=== PATIENT | male | born 1940 | race Caucasian/White ===

== ENCOUNTER 2016-08-19 13:52 | Inpatient (IN) | payer MEDICARE ==
[~2016-08-19] VITALS: Ht 180.3 cm; Wt 80.4 kg
[2016-08-19] VITALS (12 sets, daily range): BP systolic 80–143; BP diastolic 48–72; PULSE 71–89; RESP 16–23; O2SAT 90–98
[~2016-08-19 13:52] MED LIST: ALBU8.5H4 IH; ASPI-973 PO; FLUD0.1T PO; FLUT16SP NS; LORA10CA PO; MULT-1018 PO; OMEP20CA11 PO; PANT40TA3 PO; POLY17PO6 PO; SIMV40TA5 PO
--- NOTE | 2016-08-19 14:19 | ED.REPORT ---
HPI-General Illness Date of Service Aug 19, 2016 ED Provider: The patient is a 76 year old male with history of coronary artery disease, mitral valve insufficiency s/p mitral valve repair, orthostatic hypotension s/p vagotomy, hypertension, hypercholesteremia, GERD, BPH, bladder retention, who presents to the emergency department complaining of generalized weakness that began earlier today. He was unable to get out of bed this morning due to the weakness. He has also noticed low blood pressures, fatigue, nausea (started last night after eating dinner), and decreased urination. The patient states he has been drinking a lot of fluids but has not been urinating. He has required a catheter in the past for urinary retention. His blood pressure in the morning can be as low as 75/45 and midday it runs around 135/75. He denies fever, chills , chest pain, shortness of breath, cough, abdominal pain, diarrhea, vomiting, headache, numbness or focal weakness. Nursing Notes Stated Complaint: WEAK,CANT STAND, LOW BP Chief Complaint: General Complaint Nursing Notes Reviewed: Yes Allergies: Coded Allergies: No Known Allergies (Unverified , 08/19/16) Scheduled Aspirin (Aspirin) 81 Mg Tablet 81 MG PO DAILY Fludrocortisone Acetate (Fludrocortisone Acetate) 0.1 Mg Tablet 2 TABLET PO DAILY Fluticasone Propionate (Fluticasone Propionate Nasal) 16 Gm [place].susp 1 SPRAY NS DAILY Loratadine (Claritin) 10 Mg Capsule 10 MG PO BID Multivitamin (Multi Vitamin Daily) 1 Each Tablet 1 EACH PO DAILY Omeprazole (Omeprazole) 20 Mg Capsule.dr 20 MG PO BID Pantoprazole (Pantoprazole ) 40 Mg Tablet.dr 40 MG PO BID Prednisone (PredniSONE) 10 Mg Tablet 10 MG PO DAILY Simvastatin (Simvastatin) 40 Mg Tablet 40 MG PO HS Scheduled PRN Albuterol HFA (Albuterol HFA) 8.5 Gm Hfa.aer.ad 1 PUFF IH Q4-6H PRN PRN For Shortness of Breath Polyethylene Glycol 3350 (Miralax) 17 Gm Powd.pack 17 GM PO DAILY PRN PRN prn General Time Seen by MD: 14:18 Chief Complaint Weakness Hx Obtained From: Patient, Other family... Arrived By: Walk-in Sudden in Onset?: No Onset Occurred: 5 - 8 hours ago Symptom Duration: Since onset Severity: Current: No pain currently Severity: Maximum: No pain Recent Healthcare: No recent doctor visit, No recent hospitalization Similar Sx Previous: Yes Past Medical History Past Medical History Obstructive sleep apnea GERD Hypersomnia Dysphagia Non-rheumatic mitral valve stenosis Orthostatic hypotension Testicular hypofunction BPH Bladder retention Coronary artery disease Deep venous thrombophlebitis Hypertension Hypercholesteremia Mitral valve insufficiency Past Surgical History Mitral valve repair Vagotomy Hiatal hernia repair Shoulder surgery Back surgery x2 Family History Noncontributory Smoking History Former Smoker Social History Other Social History: Good social support, Local resident Ambulatory Status Independent Review of Systems Full Review of Systems Constitutional: Reports: Weakness - generalized, Denies: Chills, Fever Respiratory: Denies: Non-productive cough, Shortness of breath Cardiovascular: Denies: Chest pain GI: Reports: Nausea, Denies: Abdominal pain, Diarrhea, Vomiting Male: Reports Urination decreased Neurologic: Denies: Focal weakness, Headache, Numbness Complete sys rev & neg: except as marked. Physical Exam Vital Signs Vital Signs Date Time Temp Pulse Resp B/P Pulse Ox O2 Delivery O2 Flow Rate FiO2 08/19/16 17:08 89 84/48 08/19/16 17:06 73 135/61 08/19/16 16:57 74 23 127/63 98 08/19/16 16:00 74 21 133/53 98 Room Air 08/19/16 15:30 80 22 143/72 96 08/19/16 15:00 76 22 127/61 93 Room Air 08/19/16 14:45 80 22 124/61 95 08/19/16 14:15 83 22 116/60 91 Room Air 08/19/16 14:06 36.7 82 16 80/51 91 Room Air Initial VS: Reviewed Head / Eyes: Atraumatic, Normocephalic, PERRL ENT: Mucous membranes moist, Conjunctiva normal, No scleral icterus Neck: Supple, Non-tender, Full range of motion Cardiovascular: Regular rate & rhythm, Heart sounds normal, Intact distal pulses Abdomen / GI: Soft, Non-tender, No guarding, No rebound, No distention Lymphatic: No lymphadenopathy Extremities: Vascular intact, Neuro intact, No swelling, No tenderness Skin: Warm, Dry, No cyanosis Psychiatric: Mood/affect normal, Behavior normal, Normal thought content General/Constitutional: Awake, Alert Appearance / Presentation: Positive: Pale Respiratory / Chest: Breath sounds NL, Breath sounds = bilat, No respiratory distress, No rales, No rhonchi, No wheezing hypoxic Neurologic: Oriented X3, Speech NL, No motor deficits, No sensory deficits, CN II - XII intact Interpretation & Diagnostics Lab Results Interpretation Result Diagram: 08/19/16 1445 08/19/16 1445 Test 08/19/16 14:45 08/19/16 15:30 08/19/16 16:13 White Blood Count 13.5th/mm3 (3.8-10.1) Red Blood Count 3.53mil/mm3 (4.40-5.80) Hemoglobin 12.0g/dL (13.8-17.2) Hematocrit 35.5% (41.0-50.0) Mean Corpuscular Volume 100.6fL (81-100) Mean Corpuscular Hemoglobin 34.0pg (27.0-35.0) Mean Corpuscular Hemoglobin Concent 33.8% (32.0-37.0) Red Cell Distribution Width 13.0% (12.3-15.4) Platelet Count 152bil/L (150-400) Neutrophils (%) (Auto) 79.4% (40-74) Lymphocytes (%) (Auto) 9.5% (14-46) Monocytes (%) (Auto) 10.6% (4-12) Eosinophils (%) (Auto) 0% (0-5) Basophils (%) (Auto) 0.1% (0-3) Sodium Level 140mEq/L (134-144) Potassium Level 3.3mEq/L (3.5-5.2) Chloride Level 96mEq/L (97-108) Carbon Dioxide Level 28mmol/L (18-29) Blood Urea Nitrogen 18mg/dL (8-27) Creatinine 1.11mg/dL (0.76-1.27) Estimat Glomerular Filtration Rate 68mL/min (>59) Glucose Level 124mg/dL (60-99) Lactic Acid Level 1.5mmol/L (0.4-2.0) Calcium Level 8.3mg/dL (8.5-10.1) Magnesium Level 1.8mg/dL (1.6-2.6) Total Bilirubin 1.0mg/dL (0.0-1.2) Aspartate Amino Transf (AST/SGOT) 16U/L (0-50) Alanine Aminotransferase (ALT/SGPT) 8U/L (0-44) Alkaline Phosphatase 72U/L (25-160) Troponin T 0.018ug/L (0.0-0.011) Total Protein 6.0g/dL (6.4-8.4) Albumin 3.3g/dL (3.4-5.0) Hold [place] Top Tube Received (Received) Urine Color Yellow (YELLOW) Urine Appearance Hazy (CLEAR,HAZY) Urine pH 8.0 (5.0-8.0) Urine Specific [place] 1.015 (1.003-1.035) Urine Protein Negativemg/dL (NEG,TRACE) Urine Glucose (UA) Negativemg/dL (NEGATIVE) Urine Ketones Tracemg/dL (NEGATIVE) Urine Occult Blood Negative (NEGATIVE) Urine Nitrite Negative (NEGATIVE) Urine Bilirubin Negative (NEGATIVE) Urine Urobilinogen Normalmg/dL (NORMAL) Urine Leukocyte Esterase Negative (NEGATIVE) Urine RBC 0-2/hpf (0-2) Urine WBC 0-5/hpf (0-5) Urine Epithelial Cells Few/hpf (NONE-MOD) Urine Crystals None seen (NONE SEEN) Urine Bacteria Few/hpf (NONE-FEW) Urine Hyaline Casts 5/20/lpf (NONE) Urine Granular Casts None seen (NONE SEEN) Urine Waxy Casts None seen (NONE SEEN) Urine Red Blood Cell Casts None seen (NONE SEEN) Urine White Blood Cell Casts None seen (NONE SEEN) Urine Mucus Present (None Seen) Urine Trichomonas None seen (NONE SEEN) Urine Yeast None (NONE SEEN) Urinalysis Comment None Urine Culture Reflexed Not indicated ECG Interpretation ECG Interpretation: Sinus rhythm with a rate of 81 RBBB which is new compared to EKG from 2019 Time: 14:50 Interpreted by: ED physician X-Ray Chest Interpretation Chest Xray Interpretation: IMPRESSION: Right midlung pneumonia. Continued plain film surveillance is recommended to ensure resolution, and to exclude underlying or central malignancy. Dictated by: Jared Lee M.D. on 08/19/2016 at 14:49 Interpretation / Wet Read by: Interpret - Radiologist Re-Eval/Medical Decision Med Decision/Clinical Course Community-acquired pneumonia with associated generalized weakness and some hypotension of this is responsible IV fluids. Patient will be admitted. Source of Hx: Old records, Family Time of Eval: 15:40 Re-Evaluation/Progress Note: Rechecked the patient. Discussed imaging results, diagnosis, and plan for admission. The patient now admits to having a cough and congestion over the last few days. 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 I, Dr. Morales personally performed the history, physical exam and medical decision-making; I reviewed and confirmed the accuracy of the information in the transcribed note. Signed by: Lennox He, 08/19/2016 and 1710. copies to: Neli Roberts PA-C, Timothy S DO Aug 19, 2016 14:19 Felicitas Marcos Aug 19, 2016 14:30
[2016-08-19] MEDS ORDERED: 0.9% Sodium Chloride 1,000 ML IV ONE (14:32)
--- NOTE | 2016-08-19 14:55 | DRSVH ---
PROCEDURE: X-RAY CHEST ONE VIEW, PORTABLE ([id number]) INDICATIONS: generalized weakness TECHNIQUE: One view of the chest was acquired. COMPARISON: None. FINDINGS: Surgical changes and devices: Median sternotomy. Lungs and pleura: No pleural effusions or pneumothorax. Moderate patchy opacity within the right mid lung. Mediastinum: Mediastinal contours appear normal. Heart size is normal. Bones and chest wall: No suspicious bony lesions. Overlying soft tissues appear unremarkable. IMPRESSION: Right midlung pneumonia. Continued plain film surveillance is recommended to ensure resol ution, and to exclude underlying or central malignancy. Dictated by: Jared Lee M.D. on 08/19/2016 at 14:49 Approved by: Jared Lee M.D. on 08/19/2016 at 14:49
[2016-08-19 15:14] LABS: BASOPHILS % (AUTO) 0.1 % (0-3); EOSINOPHILS % (AUTO) 0 % (0-5); MONOCYTES % (AUTO) 10.6 % (4-12); Mean Corpuscular Volume 100.6 fL (81-100); NEUTROPHILS % (AUTO) 79.4 % (40-74); Platelet Count 152 bil/L (150-400)
[2016-08-19] MEDS ORDERED: Azithromycin Inj 500 MG in Dextrose 5% w/Vial Mate 250 ML IV ONE (15:50)
[2016-08-19] MEDS ORDERED: cefTRIAXone Inj 2,000 MG in Dextrose 5% Minibag Plus 50 ML IV ONE (15:50)
[2016-08-19 15:55] LABS: TROPONIN T 0.018 ug/L (0.0-0.011)
[2016-08-19] MEDS ORDERED: 0.9% Sodium Chloride 1,000 ML IV SCH ×2 (16:00→17:30)
[2016-08-19 16:06] LABS: Magnesium 1.8 mg/dL (1.6-2.6)
[2016-08-19 16:40] LABS: APPEARANCE,URINE HAZY (CLEAR,HAZY); COLOR,URINE YELLOW (YELLOW); OCCULT BLOOD,URINE NEGATIVE (NEGATIVE); UROBILINOGEN,URINE NORMAL (NORMAL)
[2016-08-19] MEDS ORDERED: Alum-Mag Hydrox-Simeth 30 mL Suspension PO PRN ×2 (17:30→18:05)
[2016-08-19] MEDS ORDERED: Ondansetron 2 mg/mL 2 mL Inj IVPUSH PRN ×2 (17:30→18:05)
--- NOTE | 2016-08-19 17:31 | NUR ---
Admission Pt arrived on unit and able to ambulate to bed in room. Pt was was alert and oriented X4. Admission and med rec (by admit nurse) complete except for pt care flow sheet. Pt VS WNL, clark cath draining douglas urine, pt on RA. MD at bedside. Nasal PCR completed. positive for orthostatic hypotension- put pt on fall risk. Oriented patient to room. Pt was taken to imaging for CT
[2016-08-19] MEDS ORDERED: PRE10 PO (17:55)
[2016-08-19] MEDS ORDERED: Polyethylene Glycol (PEG) 17 Gm Powder PO PRN (18:05)
[2016-08-19] MEDS ORDERED: Potassium Chloride 20 mEq SR Tablet PO ONE (18:05)
[2016-08-19] MEDS ORDERED: Albuterol HFA 60 Puff 8 Gm Inhaler INHALATION PRN (18:35)
[2016-08-19] MEDS: 0.9% Sodium Chloride 1,000 ML IV SCH (18:46)
--- NOTE | 2016-08-19 19:00 | PCM.HPMED ---
Subjective Date of Service Aug 19, 2016 Primary Provider: Admitting Physician: Jasper Freedman Primary Care Physician: Neli Roberts PA-C Attending Physician: Jasper Freedman Chief Complaint: generalized weakness History of Present Illness: 76 year old male with history of coronary artery disease, mitral valve insufficiency s/p mitral valve repair, orthostatic hypotension s/p vagotomy, BPH , bladder retention and medical issues as noted below presents today with complaint of nausea without vomiting earlier this morning associated with profound weakness to the point that he was unable to get out of bed. He has also noticed decreased urination today. He notes that he has fairly frequent episodes of nausea and orthostatic hypotension and weakness in the morning but today's episode of weakness was much more profound and severe that prompted his son to bring him to the hospital. He reports some upper chest congestion as well but denies any cough, SOB, fever, or chills. In the ED he was initially noted to be hypotensive but improved with IVF. His workup was also notable for leukocytosis and CXR suggestive of pneumonia and as such he received a dose of IV Ceftriaxone and Azithro for presumed CAP. Allergies Coded Allergies: No Known Allergies (Unverified , 08/19/16) Home Medications Loratadine 10 Mg PO BID Ref 0 Albuterol HFA 1 Puff IH Q4-6H PRN Simvastatin 40 Mg PO HS Aspirin 81 Mg Tablet 81 Mg PO DAILY Fluticasone Propionate 16 Gm [place].Susp 1 [place] NS DAILY Omeprazole 20 Mg PO BID Pantoprazole DR 40 Mg PO BID Polyethylene Glycol 3350 17 Gm Powd.Pack 17 Gm PO DAILY PRN Fludrocortisone Acetate 2 Tablet PO DAILY Prednisone 10 Mg PO DAILY Multivitamin 1 Each PO DAILY Exam Vital Signs & I/O Vital Sign- Last 8 Hours Date Time Temp Pulse Resp B/P Pulse Ox O2 Delivery O2 Flow Rate FiO2 08/19/16 17:54 76 08/19/16 17:35 36.8 71 20 119/71 90 Room Air 08/19/16 17:08 89 84/48 08/19/16 17:06 73 135/61 08/19/16 16:57 74 23 127/63 98 08/19/16 16:00 74 21 133/53 98 Room Air 08/19/16 15:30 80 22 143/72 96 08/19/16 15:00 76 22 127/61 93 Room Air 08/19/16 14:45 80 22 124/61 95 08/19/16 14:15 83 22 116/60 91 Room Air 08/19/16 14:06 36.7 82 16 80/51 91 Room Air Lab & Micro Results Laboratory Tests Test 08/19/16 14:45 08/19/16 15:30 08/19/16 16:13 White Blood Count 13.5th/mm3 (3.8-10.1) Red Blood Count 3.53mil/mm3 (4.40-5.80) Hemoglobin 12.0g/dL (13.8-17.2) Hematocrit 35.5% (41.0-50.0) Mean Corpuscular Volume 100.6fL (81-100) Mean Corpuscular Hemoglobin 34.0pg (27.0-35.0) Mean Corpuscular Hemoglobin Concent 33.8% (32.0-37.0) Red Cell Distribution Width 13.0% (12.3-15.4) Platelet Count 152bil/L (150-400) Neutrophils (%) (Auto) 79.4% (40-74) Lymphocytes (%) (Auto) 9.5% (14-46) Monocytes (%) (Auto) 10.6% (4-12) Eosinophils (%) (Auto) 0% (0-5) Basophils (%) (Auto) 0.1% (0-3) Sodium Level 140mEq/L (134-144) Potassium Level 3.3mEq/L (3.5-5.2) Chloride Level 96mEq/L (97-108) Carbon Dioxide Level 28mmol/L (18-29) Blood Urea Nitrogen 18mg/dL (8-27) Creatinine 1.11mg/dL (0.76-1.27) Estimat Glomerular Filtration Rate 68mL/min (>59) Glucose Level 124mg/dL (60-99) Lactic Acid Level 1.5mmol/L (0.4-2.0) Calcium Level 8.3mg/dL (8.5-10.1) Magnesium Level 1.8mg/dL (1.6-2.6) Total Bilirubin 1.0mg/dL (0.0-1.2) Aspartate Amino Transf (AST/SGOT) 16U/L (0-50) Alanine Aminotransferase (ALT/SGPT) 8U/L (0-44) Alkaline Phosphatase 72U/L (25-160) Troponin T 0.018ug/L (0.0-0.011) Total Protein 6.0g/dL (6.4-8.4) Albumin 3.3g/dL (3.4-5.0) Hold [place] Top Tube Received (Received) Urine Color Yellow (YELLOW) Urine Appearance Hazy (CLEAR,HAZY) Urine pH 8.0 (5.0-8.0) Urine Specific [place] 1.015 (1.003-1.035) Urine Protein Negativemg/dL (NEG,TRACE) Urine Glucose (UA) Negativemg/dL (NEGATIVE) Urine Ketones Tracemg/dL (NEGATIVE) Urine Occult Blood Negative (NEGATIVE) Urine Nitrite Negative (NEGATIVE) Urine Bilirubin Negative (NEGATIVE) Urine Urobilinogen Normalmg/dL (NORMAL) Urine Leukocyte Esterase Negative (NEGATIVE) Urine RBC 0-2/hpf (0-2) Urine WBC 0-5/hpf (0-5) Urine Epithelial Cells Few/hpf (NONE-MOD) Urine Crystals None seen (NONE SEEN) Urine Bacteria Few/hpf (NONE-FEW) Urine Hyaline Casts 5/20/lpf (NONE) Urine Granular Casts None seen (NONE SEEN) Urine Waxy Casts None seen (NONE SEEN) Urine Red Blood Cell Casts None seen (NONE SEEN) Urine White Blood Cell Casts None seen (NONE SEEN) Urine Mucus Present (None Seen) Urine Trichomonas None seen (NONE SEEN) Urine Yeast None (NONE SEEN) Urinalysis Comment None Urine Culture Reflexed Not indicated Microbiology 08/19/16 Blood Culture, Received Pending Result Diagram: 08/19/16 1445 08/19/16 1445 Review of Systems: Constitutional: Negative, except as otherwise mentioned in the history above. Ophthalmologic: Negative, except as otherwise mentioned in the history above. Cardiovascular: Negative, except as otherwise mentioned in the history above. Respiratory: Negative, except as otherwise mentioned in the history above. Gastrointestinal: Negative, except as otherwise mentioned in the history above. Genitourinary: Negative, except as otherwise mentioned in the history above. Musculoskeletal: Negative, except as otherwise mentioned in the history above. Neurological: Negative, except as otherwise mentioned in the history above. Psychiatric: Negative, except as otherwise mentioned in the history above. Hematologic/Lymphatic: Negative, except as otherwise mentioned in the history above. Allergic/Immunologic: Negative, except as otherwise mentioned in the history above. PMH Obstructive sleep apnea GERD Hypersomnia Dysphagia Non-rheumatic mitral valve stenosis Orthostatic hypotension Testicular hypofunction BPH Bladder retention Coronary artery disease Deep venous thrombophlebitis Hypertension Hypercholesteremia Mitral valve insufficiency Surgical History Mitral valve repair Vagotomy Hiatal hernia repair Shoulder surgery Back surgery x2 Family History Father with prostate cancer Social History Hx Alcohol Use: No Hx Substance Use: No Hx Tobacco Use: Yes (Quit 20 yrs ago) Smoking Status: Former Smoker Exam Vital Signs Vital Sign - Last Date Time Temp Pulse Resp B/P Pulse Ox O2 Delivery O2 Flow Rate FiO2 08/19/16 17:54 76 08/19/16 17:35 36.8 20 119/71 90 Room Air General: Alert, Oriented X3, Cooperative, No Acute Distress Head: Normal Eyes: PERRLA, EOMI, Scleral Anicteric Nose: Mucous Membr Moist/[place] Mouth: Mucous Membr Moist/[place] Neck: Supple Chest & Lungs: Chest Wall Normal, Clear to auscultation & percussion Cardiovascular: Regular Rate/Rhythm Abdomen: Non-tender, Non-distended, Normoactive bowel tones, Soft Extremities: No cyanosis/clubbing/edma bilat Neurological: Grossly Neurologically Intact, Cranial Nerves 2-12 Intact, Normal Speech Additional Information: No lymphadenopathy appropriate affect Orr cath in place Lab and Diagnostics Result Diagram: 08/19/16 1445 08/19/16 1445 X-Rays, CTs and MRIs Date of Service: 08/19/16 1432 PROCEDURE: X-RAY CHEST ONE VIEW, PORTABLE ([id number]) IMPRESSION: Right midlung pneumonia. Continued plain film surveillance is recommended to ensure resolution, and to exclude underlying or central malignancy. Dictated by: Jared Lee M.D. on 08/19/2016 at 14:49 Approved by: Jared Lee M.D. on 08/19/2016 at 14:49 12-lead ECG NSR at about 80 bpm. RBBB. no old EKG for comparison. Assessment & Plan 76 year old male with history of coronary artery disease, mitral valve insufficiency s/p mitral valve repair, orthostatic hypotension s/p vagotomy, BPH , bladder retention and medical issues as noted below presents today with complaint of nausea without vomiting associated with profound generalized weakness to the point that he was unable to get out of bed. # Acute generalized weakness, present on admission. - unclear etiology but possibly due to underlying dehydration (given patient reports already feeling much improved after IVF in ED) in addition to possible developing pneumonia - c/w supportive care and treatment as noted below # Possible acute community acquired pneumonia. present on admission. - clinically without any reported cough, fever, chills. However, CXR with questionable right midlung pneumonia and with mild leukocytosis - c/w empiric Ceftriaxone and Azithromycin for now - check procalcitonin - check CT chest # Suspected acute dehydration. present on admission. - c/w gentle IVF and f/u # History of coronary artery disease with mildly elevated Troponin without any reported chest pain - continue to cycle Trop and if evidence of rising Trop will consider further f/ u Echo - c/w home cardiac meds # GERD - c/w home PPI # Orthostatic hypotension. chronic - gentle IVF as noted above - PT eval # BPH and urinary retention, acute on chronic. present on admission - c/w Orr cath placed in ED for now - voiding trial in am # Hypertension, chronic. stable - c/w home meds # Obstructive sleep apnea. chronic. Expected length of hospital stay is greater than 2 midnights and likely 2-3 days GI Prophylaxis: Proton Pump Inhibitor VTE Prophylaxis: Sub-Q Heparin (Unfractionated) Resuscitation Status: CPR: Attempt Resuscitation (discussed and verified with the patient) Time spent 60 min Jasper Freedman Aug 19, 2016 19:00
[2016-08-19] MEDS: Albuterol 2.5 mg/3 mL Inhalation Solution NEB SCH ×2 (19:10→23:10)
--- NOTE | 2016-08-19 19:21 | DRSVH ---
PROCEDURE: CT CHEST WITHOUT CONTRAST ([id number]) INDICATIONS: chest congestion. ? pneumoina on CXR TECHNIQUE: Noncontrast 5 mm thick sections acquired from the pulmonary apices to the posterior costophrenic angl es. 7 mm thick coronal and sagittal MIP reformats were then acquired. For radiation dose reduction, the following was used: automated exposure control, adjustment of mA and/or kV according to patient size. COMPARISON: None. FINDINGS: Image quality: Excellent. Lungs and pleura: Moderate patchy airspace opacity within the right upper and right middle lobes is p resent, indicating multifocal pneumonia. Trace right pneumothorax. No pneumothorax. Central and adán pheral airways are patent and normal in caliber. Mediastinum: Heart size is normal. No pericardial effusion. No mediastinal adenopathy by size crit eria. Thoracic aorta and central pulmonary arteries are normal in size. Esophagus is normal in nayana carla. There is a small hiatal hernia. Bones and chest wall: Median sternotomy. No suspicious bony lesions. No vertebral body compression f ractures. No axillary or supraclavicular adenopathy by size criteria. Thyroid gland is within josiah l limits on noncontrast imaging. Abdomen: Visualized upper abdominal solid organs and bowel loops appear normal in the absence of con trast. IMPRESSION: 1. Right upper and right middle lobe pneumonia. Follow up plain films of the chest are recommended to ensure resolution, and to exclude underlying or central malignancy. 2. Small hiatal hernia. Dictated by: Jared Lee M.D. on 08/19/2016 at 19:18 Approved by: Jared Lee M.D. on 08/19/2016 at 19:19
[2016-08-19] MEDS: cefTRIAXone Inj 2,000 MG in Dextrose 5% Minibag Plus 50 ML IV SCH (20:09)
[2016-08-19] MEDS: Pantoprazole 20 mg ER24 Tablet PO SCH (20:34)
[2016-08-20] VITALS (14 sets, daily range): BP systolic 123–158; BP diastolic 73–85; PULSE 66–103; RESP 16–24; O2SAT 91–96
[2016-08-20] MEDS: Heparin 5,000 Unit/mL Inj SUBQ SCH ×3 (01:02→16:48)
[2016-08-20] MEDS: Albuterol 2.5 mg/3 mL Inhalation Solution NEB SCH ×5 (04:56→19:34)
[2016-08-20 05:40] LABS: BASOPHILS % (AUTO) 0.3 % (0-3); EOSINOPHILS % (AUTO) 0.9 % (0-5); MONOCYTES % (AUTO) 8.6 % (4-12); Mean Corpuscular Hemoglobin 33.7 pg (27.0-35.0); Mean Corpuscular Volume 101.9 fL (81-100); NEUTROPHILS % (AUTO) 74.7 % (40-74); Platelet Count 125 bil/L (150-400)
[2016-08-20 05:52] LABS: INR 1.16 ratio
[2016-08-20] MEDS: 0.9% Sodium Chloride 1,000 ML IV SCH ×2 (07:30→17:59)
[2016-08-20] MEDS ORDERED: KCl 40 mEq/D5W 500 mL 40 MEQ in IV Premix 500 EACH IV ONE (07:35)
[2016-08-20] MEDS: Pantoprazole 20 mg ER24 Tablet PO SCH ×2 (10:19→20:54)
[2016-08-20] MEDS: Fluticasone 0.05% 15 Spray/2 Gm 16 Gm Nasal Spray NASAL SCH (10:20)
--- NOTE | 2016-08-20 12:57 | NUR ---
Evaluation completed. Please go to "Notes" then click on "Assessments and Notes" (bottom left corner of screen). Then select appropriate discipline tab on top of screen.
--- NOTE | 2016-08-20 14:31 | PCM.PNMED ---
Subjective Date of Service Aug 20, 2016 Subjective denies any new issues/complaints. Exam Vital Signs Vital Sign - Last Date Time Temp Pulse Resp B/P Pulse Ox O2 Delivery O2 Flow Rate FiO2 08/20/16 13:45 36.7 87 18 158/85 95 Room Air 08/20/16 05:41 1.00 Intake and Output 08/19/16 08/19/16 08/20/16 Cumulative From/Thru 15:00 23:00 07:00 08/19/16 14:06 - 08/20/16 06:37 Intake Total 1000 ml 200 ml 1200 ml Output Total 350 ml 350 ml Balance 1000 ml -150 ml 850 ml Intake Oral 200 ml 200 ml IV Total 1000 ml 1000 ml Output Urine Total 350 ml 350 ml # Bowel Movements 0 0 Exam General: Alert, Cooperative, No Acute Distress Head: Normal Eyes: PERRLA, EOMI, Scleral Anicteric Nose: Mucous Membr Moist/[place] Mouth: Mucous Membr Moist/[place] Neck: Supple Chest & Lungs: Chest Wall Normal, Clear to auscultation bilat Cardiovascular: Regular Rate/Rhythm Abdomen: Non-tender, Non-distended, Normoactive bowel tones, Soft Extremities: No cyanosis/clubbing. trace bilat LE edema Neurological: Grossly Neurologically Intact, Cranial Nerves 2-12 Intact, Normal Speech Additional Information: No lymphadenopathy appropriate affect Orr cath in place IVs and Medications Medications Reviewed: Medications were reviewed in detail Lab and Diagnostics Result Diagram: 08/20/16 0510 08/20/16 0510 X-Rays, CTs and MRIs Date of Service: 08/19/16 1432 PROCEDURE: X-RAY CHEST ONE VIEW, PORTABLE ([id number]) IMPRESSION: Right midlung pneumonia. Continued plain film surveillance is recommended to ensure resolution, and to exclude underlying or central malignancy. Dictated by: Jared Lee M.D. on 08/19/2016 at 14:49 Approved by: Jared Lee M.D. on 08/19/2016 at 14:49 12-lead ECG NSR at about 80 bpm. RBBB. no old EKG for comparison. Assessment & Plan 76 year old male with history of coronary artery disease, mitral valve insufficiency s/p mitral valve repair, orthostatic hypotension s/p vagotomy, BPH , bladder retention and medical issues as noted below presents today with complaint of nausea without vomiting associated with profound generalized weakness to the point that he was unable to get out of bed. # Acute generalized weakness, present on admission. - unclear etiology but possibly due to underlying dehydration (given patient reports already feeling much improved after IVF in ED) in addition to possible developing pneumonia - c/w supportive care and treatment as noted below # Possible acute community acquired pneumonia. present on admission. - clinically without any reported fever, chills. However, CXR and CT chest suggest right midlung pneumonia and with mild leukocytosis. patient with noted cough with productive sputum today as well. - procalcitonin also elevated - c/w empiric Ceftriaxone and Azithromycin (day 2) # Suspected acute dehydration. present on admission. improving - c/w gentle IVF and f/u # Acute hypokalemia. - replete and f/u # History of coronary artery disease with mildly elevated Troponin without any reported chest pain - normalized on repeat labs - c/w home cardiac meds # GERD - c/w home PPI # Orthostatic hypotension. chronic - gentle IVF as noted above - PT eval # BPH and urinary retention, acute on chronic. present on admission - c/w Orr cath placed in ED for now - voiding trial in am # Hypertension, chronic. stable - c/w home meds # Obstructive sleep apnea. chronic. - unable to tolerate CPAP at home Disop: 1-2 days GI Prophylaxis: Proton Pump Inhibitor VTE Prophylaxis: Sub-Q Heparin (Unfractionated) VTE Mechanical Devices: Anti-Embolic stockings Resuscitation Status: CPR: Attempt Resuscitation (discussed and verified with the patient) Jasper Freedman Aug 20, 2016 14:31
--- NOTE | 2016-08-20 14:57 | NUR ---
Evaluation completed. Please go to "Notes" then click on "Assessments and Notes" (bottom left corner of screen). Then select appropriate discipline tab on top of screen.
--- NOTE | 2016-08-20 17:07 | NUR ---
PVC couplet and triplets Notified by tele that pt had one PVC couplet followed by PVC triplets X6 with 2 beats in SR in between 3 of the triplets. Pt was sleeping and was asymptomatic. notified.
[2016-08-20] MEDS: cefTRIAXone Inj 2,000 MG in Dextrose 5% Minibag Plus 50 ML IV SCH (17:59)
[2016-08-21] VITALS (15 sets, daily range): BP systolic 119–199; BP diastolic 63–98; PULSE 79–110; RESP 16–24; O2SAT 86–97
[2016-08-21] MEDS: Albuterol 2.5 mg/3 mL Inhalation Solution NEB SCH ×6 (00:07→19:51)
[2016-08-21] MEDS: Heparin 5,000 Unit/mL Inj SUBQ SCH ×3 (00:37→16:16)
[2016-08-21 05:33] LABS: Mean Corpuscular Hemoglobin 33.2 pg (27.0-35.0); Mean Corpuscular Volume 100.9 fL (81-100)
[2016-08-21] MEDS: 0.9% Sodium Chloride 1,000 ML IV SCH (05:40)
--- NOTE | 2016-08-21 05:48 | NUR ---
NOC activity Pt denies chest pain, sob, n/v or abd discomfort. Pt is anxious about his sputum. Noted pt's sputum to be pink to reddish stain colored. Breathing Tx administered by RT as needed. Pt is still on droplet/airborne precaution for pending sputum cult. Hourly rounding done, VSS and pt is afebrile overnight.
[2016-08-21] MEDS ORDERED: Potassium Chloride 20 mEq SR Tablet PO ONE (07:35)
[2016-08-21] MEDS: Fluticasone 0.05% 15 Spray/2 Gm 16 Gm Nasal Spray NASAL SCH ×2 (08:07→08:13)
[2016-08-21] MEDS: Pantoprazole 20 mg ER24 Tablet PO SCH ×2 (08:08→20:18)
[2016-08-21] MEDS ORDERED: levoFLOXacin Dose Per Pharmacist XX ONE (10:15)
[2016-08-21] MEDS ORDERED: levoFLOXacin 750 mg Tablet PO ONE (10:45)
--- NOTE | 2016-08-21 10:55 | NUR ---
Clark: Clark removed @ 1100. Will follow for urine output. Addendum: 08/21/16 at 1347 by JACKSON MARIA RN Patient urinated 150ml approx 15min post clark removal.
--- NOTE | 2016-08-21 13:47 | NUR ---
O2 Saturation: Room air O2 saturation 80s. Place on 2L O2, o2 stats increased to low to mid 90s. aware. Order received for Incentive spirometer and pulmonary toileting by RT. RT notified. IS at bedside. Encouraged deep breathing exercises. Addendum: 08/21/16 at 1729 by JACKSON MARIA RN Reassessment, WEB SEARCH EVALUATOR 93% 1L oxygen NC. Kristian OLIVAREZ
[2016-08-21] MEDS ORDERED: hydrALAZINE 20 mg/mL Inj IV PRN (14:15)
--- NOTE | 2016-08-21 14:29 | PCM.PNMED ---
Subjective Date of Service Aug 21, 2016 Subjective denies any new issues/complaints but says felt SOB after stopping supplemental O2 this am Exam Vital Signs Vital Sign - Last Date Time Temp Pulse Resp B/P Pulse Ox O2 Delivery O2 Flow Rate FiO2 08/21/16 14:03 37.3 103 20 199/98 96 Nasal Cannula 2.00 Intake and Output 08/20/16 08/20/16 08/21/16 Cumulative From/Thru 15:00 23:00 07:00 08/19/16 14:06 - 08/21/16 06:30 Intake Total 1048 ml 2481 ml 1143 ml 5872 ml Output Total 1325 ml 400 ml 2075 ml Balance 1048 ml 1156 ml 743 ml 3797 ml Intake Oral 1108 ml 200 ml 1508 ml IV Total 1048 ml 1373 ml 943 ml 4364 ml Output Urine Total 1325 ml 400 ml 2075 ml # Bowel Movements 2 0 2 Exam General: Alert, Cooperative, No Acute Distress Head: Normal Eyes: PERRLA, EOMI, Scleral Anicteric Nose: Mucous Membr Moist/[place] Mouth: Mucous Membr Moist/[place] Neck: Supple Chest & Lungs: Chest Wall Normal, Clear to auscultation bilat Cardiovascular: Regular Rate/Rhythm Abdomen: Non-tender, Non-distended, Normoactive bowel tones, Soft Extremities: No cyanosis/clubbing. trace bilat LE edema Neurological: Grossly Neurologically Intact, Cranial Nerves 2-12 Intact, Normal Speech Additional Information: No lymphadenopathy appropriate affect IVs and Medications Medications Reviewed: Medications were reviewed in detail Lab and Diagnostics Result Diagram: 08/21/16 0515 08/21/16 0515 X-Rays, CTs and MRIs Date of Service: 08/19/16 1432 PROCEDURE: X-RAY CHEST ONE VIEW, PORTABLE ([id number]) IMPRESSION: Right midlung pneumonia. Continued plain film surveillance is recommended to ensure resolution, and to exclude underlying or central malignancy. Dictated by: Jared Lee M.D. on 08/19/2016 at 14:49 Approved by: Jared Lee M.D. on 08/19/2016 at 14:49 12-lead ECG NSR at about 80 bpm. RBBB. no old EKG for comparison. Assessment & Plan 76 year old male with history of coronary artery disease, mitral valve insufficiency s/p mitral valve repair, orthostatic hypotension s/p vagotomy, BPH , bladder retention and medical issues as noted below presents today with complaint of nausea without vomiting associated with profound generalized weakness to the point that he was unable to get out of bed. # Acute generalized weakness, present on admission. - unclear etiology but possibly due to underlying dehydration (given patient reports already feeling much improved after IVF in ED) in addition to possible developing pneumonia - c/w supportive care and treatment as noted below # Possible acute community acquired pneumonia. present on admission. - clinically without any reported fever, chills. However, CXR and CT chest suggest right midlung pneumonia and with mild leukocytosis. patient with noted cough with productive sputum as well. - procalcitonin also elevated - empiric Ceftriaxone and Azithromycin (x 3 days) - Abx changed to PO Levofloxacin on 08/21 in anticipation of d/c home and to minimize number of Abx given pt reporting history of nausea and difficulty tolerating Abx in the past # Acute hypoxic respiratory failure, not present on admission. - noted hypoxemia on RA on 08/21 - pneumonia treatment as noted above - respiratory therapy and pulmonary exercises # Suspected acute dehydration. present on admission. Resolved # Acute hypokalemia. - replete and f/u # History of coronary artery disease with mildly elevated Troponin without any reported chest pain - normalized on repeat labs - c/w home cardiac meds # GERD - c/w home PPI # Orthostatic hypotension. chronic. - PT eval # BPH and urinary retention, acute on chronic. present on admission. improved - Orr cath remove on 08/21 # Hypertension, chronic. poorly controlled - c/w home meds - IV Hydralazine prn # Obstructive sleep apnea. chronic. - unable to tolerate CPAP at home Disop: 1-2 days pending improved oxygenation GI Prophylaxis: Proton Pump Inhibitor VTE Prophylaxis: Sub-Q Heparin (Unfractionated) VTE Mechanical Devices: Anti-Embolic stockings Resuscitation Status: CPR: Attempt Resuscitation (discussed and verified with the patient) Jasper Freedman Aug 21, 2016 14:29
--- NOTE | 2016-08-21 14:54 | NUR ---
Social Work-initial assessment: Data:See initial assessment. Pt is a 76 y/o male who was admitted on 08/19/16 for pneumonia per H&P. Pt's insurance is [employer] and PCP is SHAWN Caputo. EMR reviewed. JONG met with pt and nephew Winston [phone] at bedside to discuss discharge planning, SW role explained. Pt resides at home alone in [place] where he remains independent with ADLs. Pt does not use any DME, but has a cane and fww if needed. Pt has history of HH, but has never been to SNF. 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 SW discussed DPOA/ advanced directive, pt states he has completed this, SW encouraged a copy to be brought into the hospital. PT has seen pt and recommended SNF, but pt ambulating 200ft and he will not qualify for SNF. SW discussed HH services, pt is not sure if he would be interested in any HH services. Pt would like SW to follow up again. Pt confirms that his nephew or sister will provide transport home at discharge. SW provided phone number and plan on white board in room. SW will continue to follow. Assessment:Pt who is independent at baseline. Plan:Pt to discharge home when medically stable. SW to follow up regarding HH again. SW will continue to follow. ARACELI Sandoval Addendum: 08/21/16 at 1500 by SANA JOHNSON SS Amended: Links added.
[2016-08-22] VITALS (14 sets, daily range): BP systolic 115–138; BP diastolic 20–86; PULSE 68–96; RESP 18; O2SAT 86–97
[2016-08-22] MEDS: Albuterol 2.5 mg/3 mL Inhalation Solution NEB SCH ×4 (00:05→20:02)
[2016-08-22] MEDS: Heparin 5,000 Unit/mL Inj SUBQ SCH ×3 (02:01→17:50)
--- NOTE | 2016-08-22 05:05 | NUR ---
MILO Pt having severe MILO on shift. o2 via NC running on 2LPM for comfort and CPOx since pt does not have any cpap on. Denies chest pain, sob, n/v or abd discomfort. Monitor minnie reports Sinus Rhythm with IVCD with a rate of 89. VSS and pt has been afebrile overnight.
[2016-08-22] MEDS: Fluticasone 0.05% 15 Spray/2 Gm 16 Gm Nasal Spray NASAL SCH (09:43)
[2016-08-22] MEDS: Pantoprazole 20 mg ER24 Tablet PO SCH ×2 (09:44→21:21)
[2016-08-22] MEDS: levoFLOXacin 750 mg Tablet PO SCH (14:42)
--- NOTE | 2016-08-22 14:53 | PCM.PNMED ---
Subjective Date of Service Aug 22, 2016 Subjective denies any new issues/complaints Exam Vital Signs Vital Sign - Last Date Time Temp Pulse Resp B/P Pulse Ox O2 Delivery O2 Flow Rate FiO2 08/22/16 14:06 36.8 96 18 137/73 90 Nasal Cannula 1.00 Intake and Output 08/21/16 08/21/16 08/22/16 Cumulative From/Thru 15:00 23:00 07:00 08/19/16 14:06 - 08/22/16 06:26 Intake Total 422 ml 586 ml 300 ml 7180 ml Output Total 350 ml 2425 ml Balance 422 ml 236 ml 300 ml 4755 ml Intake Oral 586 ml 300 ml 2394 ml IV Total 422 ml 4786 ml Output Urine Total 350 ml 2425 ml # Voids 1 2 3 # Bowel Movements 0 0 2 Exam General: Alert, Cooperative, No Acute Distress Head: Normal Eyes: PERRLA, EOMI, Scleral Anicteric Nose: Mucous Membr Moist/[place] Mouth: Mucous Membr Moist/[place] Neck: Supple Chest & Lungs: Chest Wall Normal, Clear to auscultation bilat Cardiovascular: Regular Rate/Rhythm Abdomen: Non-tender, Non-distended, Normoactive bowel tones, Soft Extremities: No cyanosis/clubbing. trace bilat LE edema Neurological: Grossly Neurologically Intact, Cranial Nerves 2-12 Intact, Normal Speech Additional Information: appropriate affect IVs and Medications Medications Reviewed: Medications were reviewed in detail Lab and Diagnostics Result Diagram: 08/21/16 0515 08/21/16 0515 X-Rays, CTs and MRIs Date of Service: 08/19/16 1432 PROCEDURE: X-RAY CHEST ONE VIEW, PORTABLE ([id number]) IMPRESSION: Right midlung pneumonia. Continued plain film surveillance is recommended to ensure resolution, and to exclude underlying or central malignancy. Dictated by: Jared Lee M.D. on 08/19/2016 at 14:49 Approved by: Jared Lee M.D. on 08/19/2016 at 14:49 12-lead ECG NSR at about 80 bpm. RBBB. no old EKG for comparison. Assessment & Plan 76 year old male with history of coronary artery disease, mitral valve insufficiency s/p mitral valve repair, orthostatic hypotension s/p vagotomy, BPH , bladder retention and medical issues as noted below presents today with complaint of nausea without vomiting associated with profound generalized weakness to the point that he was unable to get out of bed. # Acute generalized weakness, present on admission. Improving - unclear etiology but possibly due to underlying dehydration (given patient reports already feeling much improved after IVF in ED) in addition to possible developing pneumonia - c/w supportive care and treatment as noted below # Possible acute community acquired pneumonia. present on admission. - clinically without any reported fever, chills. However, CXR and CT chest suggest right midlung pneumonia and with mild leukocytosis. patient with noted cough with productive sputum as well. - procalcitonin also elevated - empiric Ceftriaxone and Azithromycin (x 3 days) - Abx changed to PO Levofloxacin on 08/21 in anticipation of d/c home and to minimize number of Abx given pt reporting history of nausea and difficulty tolerating Abx in the past # Acute hypoxic respiratory failure, not present on admission. improving - noted hypoxemia on RA on 08/21 - pneumonia treatment as noted above - respiratory therapy and pulmonary exercises # Suspected acute dehydration. present on admission. Resolved # Acute hypokalemia. - replete and f/u # History of coronary artery disease with mildly elevated Troponin without any reported chest pain - normalized on repeat labs - c/w home cardiac meds # GERD - c/w home PPI # Orthostatic hypotension. chronic. - PT eval # BPH and urinary retention, acute on chronic. present on admission. improved - Orr cath remove on 08/21 # Hypertension, chronic. poorly controlled - c/w home meds - IV Hydralazine prn # Obstructive sleep apnea. chronic. - unable to tolerate CPAP at home Disop: 1-2 days pending improved oxygenation GI Prophylaxis: Proton Pump Inhibitor VTE Prophylaxis: Sub-Q Heparin (Unfractionated) VTE Mechanical Devices: Intermittant Pneumatic CD Resuscitation Status: CPR: Attempt Resuscitation (discussed and verified with the patient) Time spent 25 min Jasper Freedman Aug 22, 2016 14:53
--- NOTE | 2016-08-22 15:00 | NUR ---
Social Work Note - Continued Discharge Planning: D/A: The Pt is a 76 y/o male that is on day 3 of hospitalization for pneumonia, hepoxic respiratory failure. SW met with the Pt to the follow-up regarding HH. PT evaluation completed 08/22, recommending home with HHPT vs OPPT for additional strengthening and AD training. The Pt is agreeable for HH, reports that he is homebound. HH list given to Pt, Pt reports no preference. SW referred to rotating calendar, referral to be placed to [facility]. F2F in folder. P: Pt likely to discharge home when medically stable. Referral made to [facility]. Pt agreeable to HH, F2F in folder. Viji Gonzalez MSW Day Care Home Provider ARACELI Sandoval
--- NOTE | 2016-08-22 16:00 | NUR ---
O2 TITRATION Pt was on 2L NC with SpO2 of 97%. Titrated oxygen down as pt is able to tolerate. Pt on Room Air with SpO2 of 90-94%. MD notified/updated on status. CPOX in place for continued monitoring.
[2016-08-23] VITALS (7 sets, daily range): BP systolic 76–126; BP diastolic 44–74; PULSE 83–88; RESP 16–20; O2SAT 88–95
[2016-08-23] MEDS: Heparin 5,000 Unit/mL Inj SUBQ SCH ×2 (00:03→08:58)
[2016-08-23] MEDS: Albuterol 2.5 mg/3 mL Inhalation Solution NEB SCH ×3 (00:48→07:10)
[2016-08-23 06:06] LABS: Mean Corpuscular Hemoglobin 33.2 pg (27.0-35.0); Mean Corpuscular Volume 103.5 fL (81-100)
[2016-08-23] MEDS: Fluticasone 0.05% 15 Spray/2 Gm 16 Gm Nasal Spray NASAL SCH (08:30)
[2016-08-23] MEDS ORDERED: Albuterol 2.5 mg/3 mL Inhalation Solution NEB PRN (08:53)
[2016-08-23] MEDS: levoFLOXacin 750 mg Tablet PO SCH (08:55)
[2016-08-23] MEDS: Pantoprazole 20 mg ER24 Tablet PO SCH (08:57)
[2016-08-23] MEDS ORDERED: LEVO750T9 PO (10:15)
--- NOTE | 2016-08-23 10:19 | PCM.DIMED ---
Discharge Instructions Date of Service Aug 23, 2016 Dates of Hospitalization Aug 19, 2016 at 17:16 Discharge Diagnosis Discharge Diagnosis # Acute generalized weakness, present on admission. Improving - unclear etiology but possibly due to underlying dehydration in addition to possible developing pneumonia # Possible acute community acquired pneumonia. present on admission. - Chest x-ray and CT chest suggestive of right mid-lung pneumonia # Acute hypoxic respiratory failure, not present on admission. Likely due to underlying pneumonia. Resolved. # Suspected acute dehydration. present on admission. Resolved # Acute hypokalemia. Resolved. # History of coronary artery disease. Stable. # GERD # Orthostatic hypotension. chronic. # BPH and urinary retention, acute on chronic. present on admission. Improved # Hypertension, chronic. Stable. # Obstructive sleep apnea. chronic. Diet Low fat, Low Sodium, Heart Healthy Activity No restrictions Call your provider Fever or Chills, Shortness of breath, Chest pain, Vomitting, Excessive diarrhea Patient Instructions Seek immediate medical attention if any new or worsening signs or symptoms occur. Follow-up plan 1. Followup with primary care provider in 2-7 days Follow-up Provider: Neli Roberts PA-C, [place] Aug 23, 2016 10:19
--- NOTE | 2016-08-23 10:42 | NUR ---
choice list provided. ARACELI Sandoval
--- NOTE | 2016-08-23 10:44 | NUR ---
Social Work-readiness for discharge: Data:EMR Reviewed. Pt is on day 4 of hospitalization for pneumonia per H&P. Pt is not medically stable anticipate later today or tomorrow. PT has cleared pt for home with services. Referral has been made to [facility] for RN and PT, access given. RN working on weaning pt's O2 needs. Pt updated and agreeable to plan. Pt's family to provide transport home at discharge. F2F in folder. SW will continue to follow. Assessment:Pt who would benefit from HH. Plan:Pt to discharge home when medically stable via POV. Referral made to [facility] for RN and Pt. F2F in folder. SW will continue to follow. ARACELI Sandoval
--- NOTE | 2016-08-23 11:13 | NUR ---
DISCHARGE Patient discharged home at 1105, off floor in wheelchair accompanied by TRANSCRIPTIONIST and nephew. IV discontinued intact, all belongings returned. Vitals stable (systolic BP will drop to 70-80 on ambulation, but patient remains asymptomatic as this is his baseline) denies pain and in no apparent distress. All instructions for diet, activity, medications, new prescription and follow-up reviewed with patient who reports understanding.
--- NOTE | 2016-08-23 11:34 | NUR ---
Social Work- discharge: Data:EMR Reviewed. Pt is on day 4 of hospitalization for pneumonia per H&P. Pt is ready to discharge home today. PT has cleared pt for home with HH services. F2F and orders faxed into [facility] for RN and PT and SW informed Jelani that pt is discharging today. Pt updated and agreeable to plan. Pt's family to provide transport home today. All updated and agreeable to plan. Assessment:Pt who would benefit from HH. Plan:Pt to discharge home today via POV. F2F and orders provided to [facility] for RN and PT. All updated and agreeable to plan. ARACELI Sandoval
--- NOTE | 2016-08-23 16:33 | PCM.DC.MED ---
Discharge Summary Date of Service Aug 23, 2016 Dates of Hospitalization Date of Hospital Admission Aug 19, 2016 at 17:16 Date of Discharge: Aug 23, 2016 Providers: Admitting Physician: Jasper Barnhart Primary Care Physician: Neli Roberts PA-C Attending Physician: Jasper Barnhart Diagnosis at Time of Discharge Diagnosis at Time of Discharge # Acute generalized weakness, present on admission. Improving - unclear etiology but possibly due to underlying dehydration in addition to possible developing pneumonia # Possible acute community acquired pneumonia. present on admission. - Chest x-ray and CT chest suggestive of right mid-lung pneumonia # Acute hypoxic respiratory failure, not present on admission. Likely due to underlying pneumonia. Resolved. # Suspected acute dehydration. present on admission. Resolved # Acute hypokalemia. Resolved. # History of coronary artery disease. Stable. # GERD # Orthostatic hypotension. chronic. # BPH and urinary retention, acute on chronic. present on admission. Improved # Hypertension, chronic. Stable. # Obstructive sleep apnea. chronic. Procedures XRay, CTs & MRIs Date of Service: 08/19/16 1432 PROCEDURE: X-RAY CHEST ONE VIEW, PORTABLE ([id number]) IMPRESSION: Right midlung pneumonia. Continued plain film surveillance is recommended to ensure resolution, and to exclude underlying or central malignancy. Dictated by: Jared Lee M.D. on 08/19/2016 at 14:49 Approved by: Jared Lee M.D. on 08/19/2016 at 14:49 Date of Service: 08/19/16 1801 PROCEDURE: CT CHEST WITHOUT CONTRAST ([id number]) IMPRESSION: 1. Right upper and right middle lobe pneumonia. Follow up plain films of the chest are recommended to ensure resolution, and to exclude underlying or central malignancy. 2. Small hiatal hernia. Dictated by: Jared Lee M.D. on 08/19/2016 at 19:18 Approved by: Jared Lee M.D. on 08/19/2016 at 19:19 ECG 12 Lead NSR at about 80 bpm. RBBB. no old EKG for comparison. Brief History 76 year old male with history of coronary artery disease, mitral valve insufficiency s/p mitral valve repair, orthostatic hypotension s/p vagotomy, BPH , bladder retention and medical issues as noted below presents today with complaint of nausea without vomiting earlier this morning associated with profound weakness to the point that he was unable to get out of bed. He has also noticed decreased urination today. He notes that he has fairly frequent episodes of nausea and orthostatic hypotension and weakness in the morning but today's episode of weakness was much more profound and severe that prompted his son to bring him to the hospital. He reports some upper chest congestion as well but denies any cough, SOB, fever, or chills. In the ED he was initially noted to be hypotensive but improved with IVF. His workup was also notable for leukocytosis and CXR suggestive of pneumonia and as such he received a dose of IV Ceftriaxone and Azithro for presumed CAP. Hospital Course # Acute generalized weakness, present on admission. Improving - unclear etiology but possibly due to underlying dehydration (given patient reports already feeling much improved after IVF in ED) in addition to possible developing pneumonia - c/w supportive care and treatment as noted below # Possible acute community acquired pneumonia. present on admission. - clinically without any reported fever, chills. However, CXR and CT chest suggest right midlung pneumonia and with mild leukocytosis. patient with noted cough with productive sputum as well. - procalcitonin also elevated - empiric Ceftriaxone and Azithromycin (x 3 days) - Abx changed to PO Levofloxacin on 08/21 in anticipation of d/c home and to minimize number of Abx given pt reporting history of nausea and difficulty tolerating Abx in the past # Acute hypoxic respiratory failure, not present on admission. resolved - noted hypoxemia on RA on 08/21 - pneumonia treatment as noted above - respiratory therapy and pulmonary exercises - stating more than 90% on RA by day of d/c # Suspected acute dehydration. present on admission. Resolved # Acute hypokalemia. - replete and f/u # History of coronary artery disease with mildly elevated Troponin without any reported chest pain - normalized on repeat labs - c/w home cardiac meds # GERD - c/w home PPI # Orthostatic hypotension. chronic. - PT eval # BPH and urinary retention, acute on chronic. present on admission. improved - Orr cath remove on 08/21 # Hypertension, chronic. poorly controlled - c/w home meds - IV Hydralazine prn # Obstructive sleep apnea. chronic. - unable to tolerate CPAP at home by day of d/c lungs CTA bilat and speaking in full sentences. Exam Vital Signs (Last) Date Time Temp Pulse Resp B/P Pulse Ox O2 Delivery O2 Flow Rate FiO2 08/23/16 10:35 Room Air 08/23/16 10:05 84 76/44 08/23/16 10:00 36.8 18 92 08/23/16 05:50 1.50 Test 08/19/16 14:45 08/19/16 15:30 08/19/16 16:13 08/20/16 05:10 Lactic Acid Level 1.5mmol/L (0.4-2.0) Total Bilirubin 1.0mg/dL (0.0-1.2) Aspartate Amino Transf (AST/SGOT) 16U/L (0-50) Alanine Aminotransferase (ALT/SGPT) 8U/L (0-44) Alkaline Phosphatase 72U/L (25-160) Total Protein 6.0g/dL (6.4-8.4) Albumin 3.3g/dL (3.4-5.0) Hold Gasca Top Tube Received (Received) Urine Color Yellow (YELLOW) Urine Appearance Hazy (CLEAR,HAZY) Urine pH 8.0 (5.0-8.0) Urine Specific [place] 1.015 (1.003-1.035) Urine Protein Negativemg/dL (NEG,TRACE) Urine Glucose (UA) Negativemg/dL (NEGATIVE) Urine Ketones Tracemg/dL (NEGATIVE) Urine Occult Blood Negative (NEGATIVE) Urine Nitrite Negative (NEGATIVE) Urine Bilirubin Negative (NEGATIVE) Urine Urobilinogen Normalmg/dL (NORMAL) Urine Leukocyte Esterase Negative (NEGATIVE) Urine RBC 0-2/hpf (0-2) Urine WBC 0-5/hpf (0-5) Urine Epithelial Cells Few/hpf (NONE-MOD) Urine Crystals None seen (NONE SEEN) Urine Bacteria Few/hpf (NONE-FEW) Urine Hyaline Casts 5/20/lpf (NONE) Urine Granular Casts None seen (NONE SEEN) Urine Waxy Casts None seen (NONE SEEN) Urine Red Blood Cell Casts None seen (NONE SEEN) Urine White Blood Cell Casts None seen (NONE SEEN) Urine Mucus Present (None Seen) Urine Trichomonas None seen (NONE SEEN) Urine Yeast None (NONE SEEN) Urinalysis Comment None Urine Culture Reflexed Not indicated Neutrophils (%) (Auto) 74.7% (40-74) Lymphocytes (%) (Auto) 15.3% (14-46) Monocytes (%) (Auto) 8.6% (4-12) Eosinophils (%) (Auto) 0.9% (0-5) Basophils (%) (Auto) 0.3% (0-3) Prothrombin Time 12.5sec (8.1-12.5) Prothromb Time International Ratio 1.16ratio Activated Partial Thromboplast Time 29.3sec (22.8-33.0) Test 08/20/16 10:10 08/23/16 05:25 Troponin T 0.010ug/L (0.0-0.011) White Blood Count 5.3th/mm3 (3.8-10.1) Red Blood Count 3.13mil/mm3 (4.40-5.80) Hemoglobin 10.4g/dL (13.8-17.2) Hematocrit 32.4% (41.0-50.0) Mean Corpuscular Volume 103.5fL (81-100) Mean Corpuscular Hemoglobin 33.2pg (27.0-35.0) Mean Corpuscular Hemoglobin Concent 32.1% (32.0-37.0) Red Cell Distribution Width 13.2% (12.3-15.4) Platelet Count 139bil/L (150-400) Sodium Level 139mEq/L (134-144) Potassium Level 4.3mEq/L (3.5-5.2) Chloride Level 103mEq/L (97-108) Carbon Dioxide Level 26mmol/L (18-29) Blood Urea Nitrogen 14mg/dL (8-27) Creatinine 0.79mg/dL (0.76-1.27) Estimat Glomerular Filtration Rate 101mL/min (>59) Glucose Level 98mg/dL (60-99) Calcium Level 8.1mg/dL (8.5-10.1) Magnesium Level 2.0mg/dL (1.6-2.6) Procalcitonin 0.28ng/mL (0.00-0.08) Discharge Medications Discharge Medications Aspirin (Aspirin) 81 Mg Tablet 81 MG PO DAILY (Reported) Fludrocortisone Acetate (Fludrocortisone Acetate) 0.1 Mg Tablet 2 TABLET PO DAILY (Reported) Fluticasone Propionate (Fluticasone Propionate Nasal) 16 Gm [place].susp 1 SPRAY NS DAILY (Reported) Levofloxacin (Levaquin) 750 Mg Tablet 750 MG PO DAILYAC Prescribed by: JASPER BARNHART MD Loratadine (Claritin) 10 Mg Capsule 10 MG PO BID (Reported) Multivitamin (Multi Vitamin Daily) 1 Each Tablet 1 EACH PO DAILY (Reported) Omeprazole (Omeprazole) 20 Mg Capsule.dr 20 MG PO BID (Reported) Pantoprazole DR (Pantoprazole DR) 40 Mg Tablet.dr 40 MG PO BID (Reported) Simvastatin (Simvastatin) 40 Mg Tablet 40 MG PO HS (Reported) As needed Albuterol HFA (Albuterol HFA) 8.5 Gm Hfa.aer.ad 1 PUFF IH Q4-6H PRN PRN For Shortness of Breath (Reported) Polyethylene Glycol 3350 (Miralax) 17 Gm Powd.pack 17 GM PO DAILY PRN PRN prn ( Reported) Followup Plan Disposition: Home Follow-up plan 1. Followup with primary care provider in 2-7 days Discharge Diet: Low fat, Low Sodium, Heart Healthy Discharge Activity: No restrictions Patient Instructions Seek immediate medical attention if any new or worsening signs or symptoms occur. Follow-up Provider: Neli Roberts PA-C Time spent 30 min copies to: Neli Roberts PA-C, Masoud Aug 23, 2016 16:33
== END 2016-08-23 11:00 | disposition home health service (06) | DRG 193 ==
LOC: SED 13:52 → MPC 17:16
PROVIDERS: ADMIT Internal Medicine; ATTEND Internal Medicine
DX: J18.9 Pneumonia, unspecified organism (principal); J96.01 Acute respiratory failure with hypoxia; I25.10 Atherosclerotic heart disease of native coronary artery without angina pectoris; I10 Essential (primary) hypertension; K21.9 Gastro-esophageal reflux disease without esophagitis; Z87.891 Personal history of nicotine dependence; G47.33 Obstructive sleep apnea (adult) (pediatric); E86.0 Dehydration; N40.1 Benign prostatic hyperplasia with lower urinary tract symptoms; R33.8 Other retention of urine

== ENCOUNTER 2016-12-11 06:25 | Day surgery (SDC) | payer MEDICARE ==
[2016-12-11] VITALS (8 sets, daily range): BP systolic 129–211; BP diastolic 67–103; PULSE 72–89; RESP 14–18; O2SAT 94–99
[~2016-12-11] VITALS: Ht 180.3 cm; Wt 77.1 kg
[~2016-12-11 06:25] MED LIST changes: +ALBU18HF INH; -ALBU8.5H4 IH; +ALPR0.5T PO; +Acetaminophen IV 1,000 mg IV ONE; +CeFAZolin 2 Gm/50 mL D5W IV Premix IV ONE; -LORA10CA PO; +Lactated Ringer's 1,000 ML IV ONE; -OMEP20CA11 PO; +OMEP20TA86 PO; +PRE10 PO
[2016-12-11] MEDS ORDERED: fentaNYL-PF 50 mCg/mL 2 mL Inj ONE (06:26)
[2016-12-11] MEDS ORDERED: Dexamethasone 4 mg/mL Inj ONE (06:26)
[2016-12-11] MEDS ORDERED: Propofol 10,000 mCg/mL 20 mL Inj ONE (06:26)
[2016-12-11] MEDS ORDERED: Ondansetron 2 mg/mL 2 mL Inj ONE (06:26)
[2016-12-11] MEDS ORDERED: CeFAZolin 2 Gm/50 mL D5W Duplex Bag IV ONE (06:49)
[2016-12-11] MEDS ORDERED: Labetalol 5 mg/mL 4 mL Inj IV PRN (08:50)
[2016-12-11] MEDS ORDERED: Lactated Ringer's 500 ML IV PRN (08:50)
[2016-12-11] MEDS ORDERED: EPHEDrine Sulfate 50 mg/mL Inj IVPUSH PRN (08:50)
[2016-12-11] MEDS ORDERED: Lactated Ringer's 1,000 ML IV SCH (08:50)
[2016-12-11] MEDS ORDERED: MetoCLOpramide 5 mg/mL 2 mL Inj IVPUSH PRN (08:50)
[2016-12-11] MEDS ORDERED: Phenylephrine 10,000 mCg/mL Inj IVPUSH PRN (08:50)
[2016-12-11] MEDS ORDERED: Atropine 0.4 mg/mL Inj IVPUSH PRN (08:50)
[2016-12-11] MEDS ORDERED: fentaNYL-PF 50 mCg/mL 2 mL Inj IVPUSH PRN (08:50)
[2016-12-11] MEDS ORDERED: Ondansetron 2 mg/mL 2 mL Inj IVPUSH PRN (08:50)
[2016-12-11] MEDS ORDERED: HYDROmorphone 1 mg/mL Inj IVPUSH PRN (08:50)
--- NOTE | 2016-12-11 08:50 | PCM.HPANE ---
Patient Data Surgeon Admitting Provider: Attending Provider:Mars Givens MD Primary Care Physician:Neli Roberts PA-C Other Provider:Tru Mendoza Anesthesia Reason for Visit Bladder Neck Contracture, Urinary Incontinence Ht/WT & BMI Height (Feet): 5 Height (Inches): 11.00 Weight (Kilograms): 77.1 Body Mass Index 23.00 Allergies Coded Allergies: levofloxacin (Verified Allergy, Unknown, tendonitits, 12/07/16) Past Anesthesia History Anesthesia History: Denies:: Abnormal Airway, Anesthesia Reactions, Difficult Intubation, Fam Anesthesia Reaction, Fam Malignant Hypertherm, Malignant Hyperthermia Diabetes History Hx Diabetes?: No MRSA MRSA: No Medications Blood Thinner: Aspirin Hypertension Medication: No Home Meds Incl Beta Sabino: No Reported Medications Albuterol Sulfate (Ventolin HFA Inhaler)200 Puff/18 Gm Inhaler2 Puff INH Q4 PRN For Wheezing #1 INHALER Ref 0 12/07/16 Alprazolam (Xanax)0.5 Mg Tablet0.5 Mg PO TID PRN For Anxiety Ref 0 12/07/16 Simvastatin 40 Mg Axqgno34 Mg PO HS 30 Days Ref 0 12/07/[address] 40 Mg Tablet.dr40 Mg PO BID Ref 0 to take q2d- alternate with omeprazole 12/07/16 Omeprazole 20 Mg Tablet.dr20 Mg PO BID Ref 0 to take q2d alternate with pantoprazole 12/07/16 Multivitamin (Multi Vitamin Daily)1 Each Tablet1 Each PO DAILY 30 Days Ref 0 12/07/16 Polyethylene Glycol 3350 (Miralax)17 Gm Powd.pack17 Gm PO DAILY 12/07/16 Fluticasone Propionate (Fluticasone Propionate Nasal)16 Gm [place].susp2 [place] NS BID #16 GM Ref 0 12/07/16 Fludrocortisone Acetate 0.1 Mg Tablet0.1 Mg PO DAILY Ref 0 12/07/16 Aspirin 81 Mg Uakmts48 Mg PO DAILY Ref 0 12/07/16 Discontinued Reported Medications Prednisone (PredniSONE)10 Mg Irnzho51 Mg PO DAILY Ref 0 12/07/16 Loratadine (Claritin)10 Mg Qctkejm63 Mg PO BID Ref 0 03/08/16 Fludrocortisone Acetate 0.1 Mg Tablet2 Tablet PO DAILY Ref 0 03/08/[address] 40 Mg Tablet.dr40 Mg PO BID Ref 0 03/07/16 Multivitamin (Multi Vitamin Daily)1 Each Tablet1 Each PO DAILY 30 Days Ref 0 03/07/16 Aspirin 81 Mg Facmgn67 Mg PO DAILY Ref 0 03/07/16 Omeprazole 20 Mg Capsule.dr20 Mg PO BID 30 Days Ref 0 01/04/15 Polyethylene Glycol 3350 (Miralax)17 Gm Powd.pack17 Gm PO DAILY PRN prn 01/04/15 Simvastatin 40 Mg Yjkuvv90 Mg PO HS 30 Days Ref 0 09/29/14 Fluticasone Propionate (Fluticasone Propionate Nasal)16 Gm [place].susp1 [place] NS DAILY #16 GM Ref 0 09/29/14 Albuterol HFA 8.5 Gm Hfa.aer.ad1 Puff IH Q4-6H PRN For Shortness of Breath #1 INHALER Ref 0 09/29/14 Discontinued Scripts Levofloxacin (Levaquin)750 Mg Pdaovi965 Mg PO DAILYAC #3 TABLET Prov:Jasper Freedman 08/23/16 History History of ENT Problems?: Yes HEENT History: Positive for:: Cataracts (bilateral surgery) Dysphagia (r/t hiatal hernia- has to eat slow) Denies:: Abnormal Airway Difficult Intubation Hearing Problem Denture Type: Full- Upper Full- Lower Teeth Condition: Missing Teeth Hx of Heart Problems?: Yes Cardiovascular History: Positive for:: Cardiac Surgery (HEART CATH 2009,MVR- ANNULOPLASTY BAND) Heart Murmur Irregular Heartbeat (PAC'S) Thrombophlebitis (HX OF DVT RT LOWER LEG) Valvular Heart Disease (mitral valve repair 2009, echo 2016) Denies:: AICD Atrial Fibrillation Chest Pain Congestive Heart Failure Hypertension (postural hypotension ) Pacemaker Other Cardiac History: > 4 METS currently Hx of Respiratory Problem?: Yes Respiratory History: Positive for:: Asthma Dyspnea (can walk a few miles at a time, can climb stairs ) Emphysema Pneumonia (inpt here 08/2016) Use of C-PAP Machine (uses CPAP) Use of Inhalers / NEBS Denies:: COPD Cough Hemoptysis Tuberculosis Hx Neurologic Problems?: Yes Neurological History: Positive for:: Dizziness (past hx of syncope/fall) Denies:: CVA Dementia Headaches Multiple Sclerosis Parkinson's Disease Hx of GI Problems?: Yes Hx of Problems?: Yes Genitourinary History: Denies:: Urinary Tract Infection (prior hx of) Other Pertinent History: bladder neck contracture current admission problem Male Hx: Positive for:: Prostate Problems (prior hx of TURP) Denies:: Scrotal Mass Testicular Surgery Skin History: Denies:: History Skin Disorders? Pressure Ulcers Hx Musculoskeletal Problems?: Yes Musculoskeletal History: Positive for:: Back Injury (lumbar lami hx) Musculoskeletal Trauma (past hx ORIF arms, ) Osteoarthritis Denies:: Fibromyalgia Joint Replacement Systemic Lupus Hx of Psycho/Social Problems?: No Psycho Social History: Positive for:: Anxiety Denies:: Bipolar Disorder Hx Depression Hx Surgeries?: Yes (2 BACK SX, VAGOTOMY, HERNIA X2, GASTRIC WRAP , mitral valve repair) Hx Any Other Health Problems?: Yes Other History: Positive for:: Hospitalization (CARDIAC) Denies:: Cancer Endocrine Disease Thyroid Disease History Blood Transfusions: Positive for:: Accept Blood Products? Denies:: Blood Transfusions Hx Diabetes: No Hx Alcohol Use: NoHx Substance Use: No Smoking Status: Former Smoker Have You Smoked inLast 12 mo: Yes Stop/Bang S-Snoring: Do You Snore Loudly: No T-Tired: feel tired, fatigued: No O-Obsered: Observed not breath: No P-Blood Pressure: treated: No B- Body Mass Index > 35 kg/m2: No A- Age over 50: Yes N- Neck Large Circumference: No G- Gender Male: Yes MILO Total Score: 2 MILO Risk Assessment: Low Risk, <3 Yes Risk Assessment Category Category 1A: Patient has history of documented sleep apnea, and HAS NOT received any narcotic, sedative or anesthesia administration during this stay. Category 1B: Patient has history of documented sleep apnea, and HAS received any narcotic , sedative or anesthesia administration during this stay Category 2: Patient has SUSPECTED Obstructive Sleep Apnea, and HAS received any narcotic , sedative or anesthesia administration during this stay. Category 3: Patient has SUSPECTED Obstructive Sleep Apnea and HAS NOT received narcotic, sedative or anesthesia administration during this stay. Category 4: Outpatient in Procedural Areas with known sleep apnea or who screen positive for High Risk via the STOP/BANG questionnaire. Exam Exam Vital Signs Vital Signs Date Time Temp Pulse Resp B/P Pulse Ox O2 Delivery O2 Flow Rate FiO2 12/11/16 07:36 CPAP/BIPAP 12/11/16 07:36 35.4 89 18 211/103 96 Room Air General Appearance: Alert, Oriented X3, Cooperative, No Acute Distress HEENT/AIRWAY: MP 2 Lungs: Clear to Auscultation, Normal Air Movement Heart: Exam Unremarkable, Regular Rate/Rhythm, No Murmurs/Rubs/Gallops Meds/Labs/Diagnostics Admission Meds Current Medications Lactated Ringer's (Lr) 1,000 ml @ 120 mls/hr Q8H20M ONCE IV Last administered on 12/11/16 06:30; Start 12/11/16 at 05:00; Stop 12/11/16 at 13:19 Plan Impression Patient chart reviewed, patient interviewed and anesthestic plan with risks, benefits, and alternatives discussed, and informed consent obtained. NPO per Anesth. Guidelines: Yes ASA Physical Status: ASA3 Severe Disease Anesthetic Plan: GA Bene/Risks/Altern/Consents: Yes HP Complete Prior to Induction: Yes Primitivo Hunt MD Dec 11, 2016 08:12
[2016-12-11] MEDS ORDERED: Belladonna Alk-Opium 60 mg Rectal Suppository RECTAL ONE (09:27)
[2016-12-11 10:27] LABS: APPEARANCE,URINE CLEAR (CLEAR,HAZY); COLOR,URINE STRAW (YELLOW); OCCULT BLOOD,URINE NEGATIVE (NEGATIVE); PH,URINE 7.5 (5.0-8.0); UROBILINOGEN,URINE NORMAL (NORMAL)
--- NOTE | 2016-12-11 10:51 | PCM.ANEP1 ---
Post Anesthesia PACU Phase 1 Assessment Vital Signs Vital Signs Date Time Temp Pulse Resp B/P Pulse Ox O2 Delivery O2 Flow Rate FiO2 12/11/16 10:36 77 18 178/88 94 Room Air 12/11/16 10:20 72 15 188/90 98 Nasal Cannula 2 12/11/16 10:10 72 14 170/84 98 Nasal Cannula 2 12/11/16 10:00 72 16 150/80 99 Simple Mask 10 12/11/16 09:55 74 16 134/70 99 Simple Mask 10 12/11/16 09:50 37.0 74 14 129/67 98 Simple Mask 10 12/11/16 07:36 CPAP/BIPAP 12/11/16 07:36 35.4 89 18 211/103 96 Room Air Anesthetic Administered: GA Level of Alertness: Sleepy, easy to arouse STREET's with Equal Strength: Yes Pain: No Nausea or Vomiting: No CV Function & Hydration Stable: Yes Airway Device: Oxygen Delivery: Simple Mask Lungs: Clear to Auscultation, Normal Air Movement PACU Phase 2 Assessment Complications: No Follow up Care: N/A Patient Instructions Provided: N/A Primitivo Hunt MD Dec 11, 2016 10:51
--- NOTE | 2016-12-11 18:57 | OP ---
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 OPERATION PERFORMED: 1. Cystoscopy. 2. Transurethral resection of bladder neck contracture. 3. Redo transurethral resection of prostate. SURGEON: Mars Givens MD DESCRIPTION OF OPERATION: The patient was positioned supine, was administered general anesthesia. He was then repositioned in semi-lithotomy, and the lower abdomen, genitalia, and groin were prepped and draped in sterile fashion. The 25-Cuban resectoscope was then passed into the lower urinary tract with findings of a normal urethra, intact external sphincter. Prostate is status post TUR with obstructing nodular regrowth from the right lateral lobe essentially filling the TUR defect. Bladder neck contracture was approximately 16-Cuban, and this was resected along with the obstructing nodular regrowth of the right lateral lobe. The numerous stones were exhumed and no tissue was removed. No specimens were sent for pathology. The hemostasis was excellent. The bladder was left partially filled. All instrumentation was removed. A 20-Cuban hematuria catheter was then inserted, the balloon was inflated to 30 cc and was placed to gravity drainage. The patient was then repositioned supine, was awakened, transferred to a gurney, and transferred to recovery in stable condition.
== END 2016-12-11 23:59 | disposition home or self-care (01) ==
LOC: SAS 06:25
PROVIDERS: ATTEND Specialist
DX: N32.0 Bladder-neck obstruction (principal); N40.1 Benign prostatic hyperplasia with lower urinary tract symptoms; R32 Unspecified urinary incontinence; R33.8 Other retention of urine; I10 Essential (primary) hypertension; I95.1 Orthostatic hypotension; I05.0 Rheumatic mitral stenosis; E78.5 Hyperlipidemia, unspecified; E78.00 Pure hypercholesterolemia, unspecified; G47.33 Obstructive sleep apnea (adult) (pediatric); K21.9 Gastro-esophageal reflux disease without esophagitis; Z87.891 Personal history of nicotine dependence; Z79.82 Long term (current) use of aspirin
CPT/HCPCS: 52630; 81000; J0131; J0690; J1100; J2405; J3010; J7120